=== PATIENT | male | born 1950 | race Caucasian/White ===

== ENCOUNTER 2024-05-25 13:14 | Outpatient (AMB) | payer MEDICARE, SELFPAY ==
--- NOTE | 2024-05-25 13:23 | MHC.OFFVIS ---
Intake Visit Reasons: Elevated PSA Intake Note: New patient is present for Elevated PSA 8.1 Cullet Crusher And Washer Required: No Biomass Power Plant Manager: Biomass Power Plant Manager Present Accompanied by: [facility] staff Allergies dextromethorphan Allergy (Intermediate, Verified 05/25/24 13:31) Unknown HPI Comments Details: Flaquito is nonverbal from care 1. 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 Unspecified mood [affective] disorder Review of Systems Const Denies chills and Denies fever(s) Card Reports no additional complaints and Denies syncope Resp Denies cough GI Denies abdominal pain and Denies heartburn Reports as per HPI and Denies change in libido Neuro Denies syncope Psych Denies change in libido Endo Denies change in libido Physical Exam Const General: cooperative, healthy appearing, comfortable and no acute distress Orientation/consciousness: patient oriented x3 HEENT Face and sinus: Yes normal facial exam Mouth: moist mucous membranes Neck Neck: Yes normal visual inspection, Yes full ROM and Yes trachea midline Chest Chest palpation & inspection: normal inspection of the chest Resp Effort & Inspection: normal respiratory effort, able to speak in complete sentences and no respiratory distress GI Inspection: Yes normal to inspection Back/Spine/Pelvis Cervical Spine: normal cervical lordosis Thoracic/Lumbar Spine: thoracic and lumbar spine normal to inspection Skin General skin exam: no rashes or lesions noted Neuro General: patient oriented x3, gait normal, tone normal and moves all extremities Extrem General: Yes normal to inspection and Yes capillary refill normal Assessment & Plan Assessment & Plan (1) Bladder outlet obstruction: Code(s): N32.0 - Bladder-neck obstruction Category: Medical (2) Elevated PSA: Code(s): R97.20 - Elevated prostate specific antigen [PSA] Category: Medical Plan Trial finasteride Orders: Orders PSA,Total (Free>4and<10) 6 Months R97.20 - Elevated prostate specific antigen [PSA] Medications: New finasteride 5 mg PO DAILY 90 days 90 tabs 1RF N13.8 - Other obstructive and reflux uropathy, N40.1 - Benign prostatic hyperplasia with lower urinary tract symptoms, R33.9 - Retention of urine, unspecified, R97.20 - Elevated prostate specific antigen [PSA] Patient Instructions: Imaging studies, laboratory and physical exam results were discussed and reviewed in detail. No major barriers to patient understanding were identified. An opportunity to ask questions regarding the treatment plan was provided. All questions were answered. The patient expressed understanding and agreement with the above treatment plan. The patient is aware they should contact our office by phone for worsening of their current condition or the appearance of new urologic symptoms. Compliance is encouraged with any medications and followup testing that is ordered. It is a privilege to participate in the urologic care of your patient. If you have any questions or concerns regarding treatment for the above conditions, or other urologic issues, please do not hesitate to contact me. The office telephone contact is [phone]. This note is constructed using voice recognition software. While every effort has been made to ensure accuracy beauty specialist errors may have been included. Yours sincerely, Dr Dominic Baker MD, DEON [facility] - Urology Providers of Expert, Compassionate Care for the Genitourinary System Coding Level of Care Code New Pt Level 4 (92932) Diagnoses Bladder outlet obstruction N32.0 Elevated PSA R97.20
== END 2024-05-25 13:56 | disposition home or self-care (01) ==
PROVIDERS: PCP Hospitalist; Visit Provider Urology
DX: R97.20 Elevated prostate specific antigen [PSA] (principal); N32.0 Bladder-neck obstruction
CPT/HCPCS: 99204

== ENCOUNTER → 2024-05-25 13:14 | Outpatient (BNVA) | payer MEDICARE, MEDICAID, SELFPAY | PROVIDERS: PCP Hospitalist; Visit Provider Urology | DX: R97.20 Elevated prostate specific antigen [PSA] (principal); N32.0 Bladder-neck obstruction | CPT/HCPCS: 99202 ==

== ENCOUNTER 2024-09-18 20:00 | Emergency (ER) | payer MEDICARE, MEDICAID, SELFPAY ==
--- NOTE | ~2024-09-18 | CT_ITS ---
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 Vascular calcifications are noted. No hydrocephalus accounting for generalized volume loss. No midline shift. No acute skull fracture. Fluid and mucosal thickening of the paranasal sinuses with multifocal ethmoid air cell opacification. Trace mastoid effusions. Cartilage calcifications noted. IMPRESSION: 1. Minimal right frontal subarachnoid hemorrhage. 2. No midline shift or hydrocephalus. 3. Ogatywnx-kf-jgkvof white matter pathology likely due to small-vessel ischemic disease. This document has been electronically signed by: Scar Harrell MD on 09/18/2024 22:42:29
--- NOTE | ~2024-09-18 | XR_ITS ---
CLINICAL HISTORY: fall 1 view pelvis Comparison: None Findings: Acute comminuted fracture of the proximal left femur with involvement of the left greater trochanter partial obscuration of upper intertrochanteric region. Angulation impaction noted of the partially imaged neck. No dislocation with moderate to severe osteoarthritis of both hips. Portions of the sacrum and SI joints are obscured with severe stool burden in the gaqbb-jg-vvmo. Partial obscuration of the pubic rami. IMPRESSION: 1. Acute proximal left femur fracture by one view radiograph. 2. Osteoarthritis of both hips. This document has been electronically signed by: Scar Harrell MD on 09/18/2024 23:37:18
--- NOTE | ~2024-09-18 | CT_ITS ---
CLINICAL HISTORY: neck trauma CT cervical spine without contrast Comparison: None Findings: Mild reversal of the cervical lordosis. No acute fracture of the cervical spine, accounting for motion artifacts. Mild anterolisthesis at C4-C5. Multifocal ligament calcifications noted. Degenerative disc changes are multifocal with disc height losses in disc osteophyte complexes. Mild spinal canal stenosis including C3-C4 to the cervicothoracic junction. Multilevel moderate to severe foraminal narrowing, particularly in the left C3-C4, bilateral C4-C5, and left at C6-C7. Additional foraminal narrowing is mild. Facet arthropathy is multifocal. No paraspinal hematoma. Scarring about imaged lung apices. Acute nondisplaced fracture involves the medial aspect of the imaged left clavicle. IMPRESSION: 1. No acute fracture of the cervical spine. 2. Medial acute left clavicle fracture in the field of view. This document has been electronically signed by: Scar Harrell MD on 09/18/2024 22:32:42
--- NOTE | ~2024-09-18 | XR_ITS ---
CLINICAL HISTORY: hip pain 2 view, pelvis and left hip Comparison: X-ray of the one view of the pelvis from the same day. Findings: Acute comminuted fracture of the proximal left femur with comminution and distraction of the left greater trochanter and lucency at upper margin of the intertrochanteric region. Fracture with impaction and overriding of the partially imaged left femoral neck. Portions of pelvis and proximal femur obscured with dubuqufb-ee-aycwuq osteoarthritis of the left hip. Severe stool burden in the evdpw-gh-qoha. IMPRESSION: Acute comminuted fracture of the proximal left femur with osteoarthritis of the left hip. This document has been electronically signed by: Scar Harrell MD on 09/18/2024 23:37:43
--- NOTE | ~2024-09-18 | XR_ITS ---
CLINICAL HISTORY: fall 1 view chest x-ray Comparison: None Findings: Low lung volumes with mild bibasilar atelectasis and/or pneumonitis. Cardiac silhouette and mediastinum accentuated by AP technique. Left lateral rib deformities appear old chronic given remodeling. No definite pneumothorax or pleural effusion in this one view study. IMPRESSION: Low lung volumes with bibasilar atelectasis. This document has been electronically signed by: Sacr Harrell MD on 09/18/2024 21:31:04
[2024-09-18 20:12] VITALS: BP 134/55; BP 136/74; PULSE 79; PULSE 83; RESP 20; TEMP 38.1; O2SAT 96; O2SAT 97; BMI 29.3
--- NOTE | 2024-09-18 20:20 | ECG_ITS ---
Test Reason : FALL Blood Pressure : */* mmHG Vent. Rate : 77 BPM Atrial Rate : 77 BPM P-R Int : 156 ms QRS Dur : 100 ms QT Int : 360 ms P-R-T Axes : 57 5 16 degrees QTcB Int : 407 ms Sinus rhythm with Fusion complexes and Premature atrial complexes with Aberrant conduction Possible Anterior infarct , age undetermined Abnormal ECG No previous ECGs available Referred By: Anna Guerrero Electronically Signed By: JANE MELGOZA MD
--- NOTE | 2024-09-18 20:35 | ED_ITS ---
HPI - Altered Mental Status General Chief Complaint: Fall Stated Complaint: Fall w/ head strike Time Seen by Provider: 09/18/24 20:19 Source: EMS and old records reviewed Mode of arrival: EMS Limitations: altered mental status History of Present Illness ED Provider: JENNIFER SETH narrative: 74 yo male from [facility] who has PMH of mood disorder, prior ETOH abuse, COPD, low back pain, HTN, cognitive impairment, HLD, CAD who comes from [facility] after lethargy and falls x 2 with headstrike. He has no pain per his reports. No thinners. No other history provided by EMS. On arrival to room he was 100.6 so sepsis alert was called MD complaint: altered mental status Onset (ago): unknown Timing confirmed by: caregiver Severity: moderate Consistency of symptoms: unknown Context: other Associated symptoms: denies other symptoms Related Data Previous Rx's ?Medication ?Instructions ?Recorded finasteride 5 mg tablet 5 mg PO DAILY 90 days #90 tabs 05/25/24 Allergies Allergy/AdvReac Type Severity Reaction Status Date / Time dextromethorphan Allergy Intermediate Unknown Verified 09/18/24 20:15 Review of Systems 2 Review of Systems: ROS unable to be obtained due to altered mental status PMFSH Past Medical History Source: old records reviewed Medical History Elevated PSA Complex dyslipidemia Phlebitis and thrombophlebitis of superficial vessels of left lower extremity HTN (hypertension) Low back pain, unspecified Chronic obstructive pulmonary disease, unspecified Aneurysm of the ascending aorta, without rupture Alcohol use, 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 Unspecified mood [affective] disorder Social History Social History (Updated 09/18/24 @ 20:44 by Anna Guerrero DO) Unable to assess alcohol history related to: Refusing to respond Patient Tobacco Use Status: Tobacco use Unknown Advance Directives: No Advance Directives Information Provided: No Do you have a plan to hurt others: No Plan Physical Exam ED Vital Signs: Vital Signs - 24 hr 09/18/24 20:12 09/18/24 21:16 09/18/24 21:22 Temperature 100.6 F H 101.7 F H 100.6 F H Pulse Rate 79 92 77 Respiratory Rate 20 12 Blood Pressure 134/55 L 136/55 L Pulse Oximetry 97 95 Oxygen Delivery Method Room Air Room Air 09/18/24 21:38 09/18/24 21:57 09/18/24 22:28 Temperature 100.2 F 100.5 F H Pulse Rate 66 Respiratory Rate 12 Blood Pressure 138/89 127/62 Pulse Oximetry 93 Oxygen Delivery Method Room Air BMI result Body Mass Index 29.3 Appearance: lethargic, not answering questions. Mild acute distress. Eyes: Pupils equal, round and reactive to light. ENT: Pharynx normal. atraumatic Neck: Normal inspection. Neck supple. CVS: Normal heart rate and rhythm. Pulses normal. Respiratory: No respiratory distress. Breath sounds normal. Abdomen: Soft and nontender. Skin: Skin warm and dry. Normal skin color. Normal skin turgor. Extremities: No lower extremity edema. does not grimace with ROM or axial loading of the hips Neuro: localizes to pain Course Course Course Narrative: call with who is HCP Laura Webber she notes she wouldn't want NSGY or trauma or surgeries done. she doesn't think this is a good quality of life Reevaluation(s) Reevaluation #1: who is HCP wants to think about surgery of L hip 1149pm she is not sure of hospice vs surgery Reevaluation #2: still pending to make a decision with family about goals of care she is HCP he cannot make decisions anticipate sign out to Dr. Cerna Medications Administered Discontinued Medications Generic Name Dose Route Start Last Admin Trade Name Freq PRN Reason Stop Dose Admin Ceftriaxone Sodium 1 gm 09/18/24 20:23 09/18/24 20:57 Ceftriaxone Sodium 1 Gm Vial IVPUSH 09/18/24 20:24 1 gm ONCE ONE Administration Acetaminophen 1,000 mg in 100 mls @ 400 mls/hr 09/18/24 20:19 09/18/24 21:12 Ofirmev IV 09/18/24 20:33 Infused ONCE ONE Infusion Medical Decision Making Medical Decision Making [facility] Narrative: 74 [facility] male from [facility] who has PMH of mood disorder, prior ETOH abuse, COPD, low back pain, HTN, cognitive impairment, HLD, CAD here with falls x 2 and undifferentiated lethargy at this time given presentation will obtain labs, CXR, CT head/cspine given I cannot rule out trauma, IV tylenol, empiric ceftriaxone, EKG, work up for metabolic/infectious encephalopathy Differential Diagnosis Differential Diagnoses: The differential diagnosis associated with the presentation includes encephalopathy, head injury, weakness, FTT, anemia, dehydration, infectious cause Admission/Observation Consideration of admission/observation: Escalation of care including admission/observation considered Lab Data MDM Lab Attestation statement: I reviewed the patient's lab results. 09/18/24 20:50 09/18/24 20:56 Labs: Lab Results 09/18/24 09/18/24 09/18/24 Range/Units 20:50 20:56 22:31 WBC 7.6 (4.8-10.8) X10*3/uL RBC 4.30 L (4.60-5.80) X10*6/uL Hgb 12.7 L (14.0-18.0) g/dl Hct 37.2 L (42.0-52.0) % MCV 86.5 (80.0-98.0) fL MCH 29.5 (27.0-33.0) pg MCHC 34.1 (31.0-36.0) g/dl RDW 13.1 (11.0-16.0) % Plt Count 191 (160-400) X10*3/uL MPV 9.3 L (9.4-12.4) fL Immature Gran % (Auto) 0.5 H (0.0-0.4) % Neut % (Auto) 83.0 H (45-73) % Lymph % (Auto) 5.6 L (20-40) % [place] % (Auto) 6.9 (2-11) % Eos % (Auto) 3.7 (0-4) % Baso % (Auto) 0.3 (0-2) % Lymph # (Auto) 0.4 L (1.2-4.9) X10*3/uL [place] # (Auto) 0.5 (0.1-1.2) X10*3/uL Eos # (Auto) 0.3 (0.0-0.4) X10*3/uL Baso # (Auto) 0.0 (0.0-0.2) X10*3/uL Abs Immat Gran (auto) 0.04 H (0.00-0.03) X10*3/uL Absolute Neuts (auto) 6.3 (2.0-8.3) x10*3/uL Absolute Nucleated RBC 0.000 (0.0-0.012) X10*3/uL Nucleated RBC % (auto) 0.0 (0.0-0.2) /100WBC Sodium 143 (135-145) mmol/L Potassium 3.9 (3.3-5.1) mmol/L Chloride 115 H (96-108) mmol/L Carbon Dioxide 22 (22-29) mmol/L Anion Gap 10 L (12-20) BUN 21 H (9-16) mg/dL Creatinine 0.82 (0.5-1.4) mg/dL Estim Creat Clear Calc 75.4 Estimated GFR > 60 Random Glucose 137 H (60-115) mg/dL Lactic Acid 1.2 (0.5-2.0) mmol/L Calcium 8.8 (8.4-10.2) mg/dL Magnesium 1.9 (1.6-2.6) mg/dL Total Bilirubin 0.7 (0.0-1.0) mg/dL Direct Bilirubin 0.3 (0.0-0.5) mg/dL AST 20 (5-37) U/L ALT 21 (0-40) U/L Alkaline Phosphatase 137 H (39-117) U/L Total Creatine Kinase 43 (38-174) U/L Troponin I High Sens < 2.7 (<3.5-35.0) ng/L C-Reactive Protein 0.76 H (< or = 0.50) mg/dL B-Natriuretic Peptide < 10 (<100) pg/mL Total Protein 6.4 L (6.5-8.0) g/dL Albumin 4.2 (3.5-5.0) g/dL Lipase 32 (8-78) U/L Procalcitonin 0.04 ng/mL Urine Color Yellow Urine Appearance Clear Urine pH 6.0 (5.0-9.0) Ur Specific [place] >= 1.030 H (1.005-1.025) Urine Protein Negative (Neg-Trace) mg/dL Urine Glucose (UA) 100 H (Negative) mg/dL Urine Ketones Negative (Negative) mg/dL Urine Blood Negative (Negative) Urine Nitrite Negative (Negative) Ur Leukocyte Esterase Negative (Negative) Influenza Type A (PCR) NEGATIVE (Negative) Influenza Type B (PCR) NEGATIVE (Negative) RSV RNA Qual (PCR) POSITIVE A (Negative) SARS-CoV-2 RNA (RT-PCR) NEGATIVE (Negative) Independent Interpretation I performed an independent interpretation of an: EKG, Plain X-Ray and CT Scan Interpretation: Rate: 77 Rhythm: NSR [place]: normal Normal P waves. Normal ILIANA. Normal QRS complex. ST T wave : no CHRISTY, normal improved qTC: 407 prior studies: no STEMI The study has been interpreted contemporaneously by me. . Radiology Impression Discussion of test interpretation with radiology: I have reviewed the radiologist's reading. Independent Historian Clinical information obtained from an independent historian. History obtained from or confirmed by: EMS External Record Review External record reviewed: Outpatient record Discharge Plan Discharge Clinical Impression: Subarachnoid hemorrhage RSV infection Qualifiers: RSV infection type: unspecified Qualified Code(s): B33.8 - Other specified viral diseases Clavicle fracture Qualifiers: Encounter type: initial encounter Clavicle location: sternal end Fracture type: closed Fracture alignment: nondisplaced Laterality: left Qualified Code(s): S 42.018A - Nondisplaced fracture of sternal end of left clavicle, initial encounter for closed fracture Femur fracture, left Qualifiers: Encounter type: initial encounter Femur location: unspecified portion of femur Fracture type: closed Fracture morphology: unspecified fracture morphology Q ualified Code(s): S72.92XA - Unspecified fracture of left femur, initial encounter for closed fracture Patient Disposition: Still a Patient Prescriptions: No Action finasteride 5 mg tablet 5 mg PO DAILY 90 Days Qty: 90 1RF Print Language: French
[2024-09-18 20:56] LABS: MANUAL DIFF FLAG NO
[2024-09-18 20:57] LABS: Basophils Percent Auto 0.3 % (0-2); Eosinophils Absolute Auto 0.3 X10*3/uL (0.0-0.4); Eosinophils Percent Auto 3.7 % (0-4); Hematocrit 37.2 % (42.0-52.0); Hemoglobin 12.7 g/dl (14.0-18.0); Imm Gran Abs Auto 0.04 X10*3/uL (0.00-0.03); Imm Gran Pct Auto 0.5 % (0.0-0.4); Lymphocytes Absolute Auto 0.4 X10*3/uL (1.2-4.9); Lymphocytes Percent Auto 5.6 % (20-40); Mean Corpuscular HGB Conc 34.1 g/dl (31.0-36.0); Mean Corpuscular Hemoglobin 29.5 pg (27.0-33.0); Mean Corpuscular Volume 86.5 fL (80.0-98.0); Mean Platelet Volume 9.3 fL (9.4-12.4); Monocytes Absolute Auto 0.5 X10*3/uL (0.1-1.2); Monocytes Percent Auto 6.9 % (2-11); Neutrophils Absolute Auto 6.3 x10*3/uL (2.0-8.3); Platelet Count 191 X10*3/uL (160-400); Red Cell Distribution Width 13.1 % (11.0-16.0); White Blood Count 7.6 X10*3/uL (4.8-10.8)
[2024-09-18] MEDS: Acetaminophen 1,000 MG/100 ML PIGGYBACK 400 MG IV (20:57)
[2024-09-18] MEDS: cefTRIAXone sodium 1 GM VIAL IVPUSH (20:57)
--- NOTE | 2024-09-18 21:07 | PC.NURSE ---
pt [facility]. s/p witnessed fall while standing up from bed with x2 headstrikes. per facility staff no loc no thinners. per facility staff pt complains of ankle pain- however will not respond when t/w inquires about pain. on arrival pt was moderately combative, grabbing onto t/w and additional staff while attempting to collect lab specimens. t/w was able to obtain access however, pt pulled line out immediately. IV access was reestablished, and labs were obtained. LAbs pending at this time. pt taken to CT scan
[2024-09-18 21:12] LABS: Lactic Acid 1.2 mmol/L (0.5-2.0)
--- NOTE | 2024-09-18 21:15 | PC.NURSE ---
pt in CT scan
[2024-09-18 21:16] VITALS: PULSE 92; TEMP 38.7
[2024-09-18 21:18] LABS: B Type Natriuretic Peptide < 10 pg/mL (<100)
[2024-09-18 21:19] LABS: Troponin-I High Sensitivity < 2.7 ng/L (<3.5-35.0)
[2024-09-18 21:22] VITALS: BP 136/55; PULSE 77; RESP 12; TEMP 38.1; O2SAT 95
[2024-09-18 21:24] LABS: Albumin Level 4.2 g/dL (3.5-5.0); Alkaline Phosphatase 137 U/L (39-117); Anion Gap 10 (12-20); Aspartate Amino Transferase 20 U/L (5-37); Bilirubin Direct 0.3 mg/dL (0.0-0.5); Bilirubin Total 0.7 mg/dL (0.0-1.0); Blood Urea Nitrogen 21 mg/dL (9-16); C Reactive Protein 0.76 mg/dL (< or = 0.50); Calcium 8.8 mg/dL (8.4-10.2); Carbon Dioxide 22 mmol/L (22-29); Chloride 115 mmol/L (96-108); Creatinine Clr Calc Pharmacy 75.4; Estimated Glomerular Filt Rate > 60; Glucose Random 137 mg/dL (60-115); Lipase 32 U/L (8-78); Magnesium 1.9 mg/dL (1.6-2.6); Potassium 3.9 mmol/L (3.3-5.1); Sodium 143 mmol/L (135-145); Total Protein 6.4 g/dL (6.5-8.0)
[2024-09-18 21:38] VITALS: BP 138/89
[2024-09-18 21:39] LABS: Alanine Aminotransferase 21 U/L (0-40); Procalcitonin 0.04 ng/mL
[2024-09-18 21:43] LABS: Influenza A PCR NEGATIVE (Negative); Influenza B PCR NEGATIVE (Negative); Resp Syncy Virus RNA Qual PCR POSITIVE (Negative); SARS COV2 PCR INHOUSE NEGATIVE (Negative)
[2024-09-18 21:57] VITALS: TEMP 37.9
--- NOTE | 2024-09-18 22:12 | PC.NURSE ---
no fluids ordered at this time despite sepsis protocol initiation
[2024-09-18 22:28] VITALS: BP 127/62; PULSE 66; RESP 12; TEMP 38.1; O2SAT 93
[2024-09-18 22:57] LABS: Appearance Urine Clear; Color Urine Yellow; Glucose Urine UA 100 mg/dL (Negative); Leukocyte Esterase Urine Negative (Negative); Nitrite Urine Negative (Negative); Specific Gravity - Urine >= 1.030 (1.005-1.025); Urine Blood Negative (Negative); Urine Ketones Negative (Negative); Urine Protein Negative (Neg-Trace)
--- NOTE | 2024-09-18 23:02 | PC.NURSE ---
pt cleared from c-collar per MD Guerrero, pt found to have ?subarachnoid hemmorhage, PER MD Guerrero family does not wish to have pt transferred to trauma center. pt taken for additional imaging at this time
[2024-09-19 05:56] VITALS: BP 122/58; PULSE 68; RESP 12; TEMP 38.3; O2SAT 97
[2024-09-19] MEDS: Acetaminophen 1,000 MG/100 ML PIGGYBACK 400 MG IV (06:24)
--- NOTE | 2024-09-19 08:12 | PC.NURSE ---
Meal tray ordered for pt.
[2024-09-19 09:50] VITALS: BP 140/74; PULSE 58; RESP 16; TEMP 36.5; O2SAT 96
--- NOTE | 2024-09-19 10:49 | PHA.MEDREC ---
Pharmacy Consult ? Medication Reconciliation Pharmacy has reviewed the medication reconciliation completed by nursing. Utilized list from facility
--- NOTE | 2024-09-19 11:16 | MHC.EDTECH ---
Patient pulled on and removed [place] catheter. New [place] catheter placed. Patient resting quietly, positioned for comfort. Call figueroa placed within reach.
[2024-09-19 12:08] VITALS: BP 155/79; PULSE 59; RESP 12; TEMP 36.7; O2SAT 98
--- NOTE | 2024-09-19 13:27 | PC.NURSE ---
Called [facility], spoke to Nancy YANEZ all questions answered, patient to be transferred over once transport available.
[2024-09-19 14:02] VITALS: BP 158/76; PULSE 59; RESP 12; TEMP 36.7; O2SAT 98
== END 2024-09-19 14:03 | disposition short-term general hospital (02) ==
PROVIDERS: Emergency Provider Emergency Medicine; PCP Hospitalist
DX: S06.6XAA Traumatic subarachnoid hemorrhage with loss of consciousness status unknown, initial encounter (principal); S42.018A Nondisplaced fracture of sternal end of left clavicle, initial encounter for closed fracture; S72.92XA Unspecified fracture of left femur, initial encounter for closed fracture; W19.XXXA Unspecified fall, initial encounter; R53.83 Other fatigue; R50.9 Fever, unspecified; B97.4 Respiratory syncytial virus as the cause of diseases classified elsewhere; F10.10 Alcohol abuse, uncomplicated; Y90.9 Presence of alcohol in blood, level not specified; Z03.818 Encounter for observation for suspected exposure to other biological agents ruled out; J44.9 Chronic obstructive pulmonary disease, unspecified; I10 Essential (primary) hypertension; E78.5 Hyperlipidemia, unspecified; Z91.81 History of falling; Y93.9 Activity, unspecified; Y92.129 Unspecified place in nursing home as the place of occurrence of the external cause; Y99.9 Unspecified external cause status
CPT/HCPCS: 0241U; 36415; 70450; 71045; 72125; 72170; 73502; 80048; 80076; 81003; 82550; 83605; 83690; 83735; 83880; 84145; 84484; 85025; 86140; 87040; 93005; 96365; 96375; 99285; J0131; J0696

== ENCOUNTER → 2024-09-18 20:20 | Outpatient (BNV) | payer MEDICARE, MEDICAID, SELFPAY | PROVIDERS: Emergency Provider Emergency Medicine; PCP Hospitalist; Visit Provider Internal Medicine Cardiovascular Disease | DX: I49.1 Atrial premature depolarization (principal); R94.31 Abnormal electrocardiogram [ECG] [EKG] | CPT/HCPCS: 93010 ==

== ENCOUNTER → 2024-09-18 20:20 | Outpatient (BNV) | payer MEDICARE, MEDICAID, SELFPAY | PROVIDERS: Emergency Provider Emergency Medicine; PCP Hospitalist; Visit Provider Radiology Neuroradiology | DX: S72.352A Displaced comminuted fracture of shaft of left femur, initial encounter for closed fracture (principal) | CPT/HCPCS: 70450; 71045; 72125; 72170; 73502 ==

== ENCOUNTER 2025-01-02 13:41 | Outpatient (AMB) | payer MEDICARE, MEDICAID, SELFPAY ==
--- NOTE | 2025-01-02 14:06 | MHC.OFFVIS ---
Intake Visit Reasons: 6m/PSA Intake Note: Patient presents for a 6m follow up of elevated PSA Commissary Production Supervisor Required: No Weaver Needle Loom: Weaver Needle Loom Present Accompanied by: [facility] staff Allergies dextromethorphan Allergy (Intermediate, Verified 01/02/25 14:08) Unknown HPI Comments Details: Flaquito is nonverbal from [facility]. He is seen for the following urologic conditions - elevated PSA - lower urinary tract symptoms Six-month follow-up Prior trial off finasteride Accompanied by 2 aides PSA fallen from 8.1-0.5 Elevated PSA PSA 03/06 8.1, 01/05 0.5 Patient nonverbal Continue finasteride [facility] Medical History (Updated 09/20/24 @ 00:00 by Jim Arenas) Elevated PSA Complex dyslipidemia Phlebitis and thrombophlebitis of superficial vessels of left lower extremity HTN (hypertension) Low back pain, unspecified Chronic obstructive pulmonary disease, unspecified Aneurysm of the ascending aorta, without rupture Alcohol use, 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 Unspecified mood [affective] disorder Social History (Updated 09/18/24 @ 20:44 by Anna Guerrero DO) Unable to assess alcohol history related to: Refusing to respond Patient Tobacco Use Status: Tobacco use Unknown Review of Systems Const Denies chills and Denies fever(s) Card Reports no additional complaints and Denies syncope Resp Denies cough GI Denies abdominal pain and Denies heartburn Reports as per HPI and Denies change in libido Neuro Denies syncope Psych Denies change in libido Endo Denies change in libido Physical Exam Const General: cooperative, healthy appearing, comfortable and no acute distress Orientation/consciousness: patient oriented x3 HEENT Face and sinus: Yes normal facial exam Mouth: moist mucous membranes Neck Neck: Yes normal visual inspection, Yes full ROM and Yes trachea midline Chest Chest palpation & inspection: normal inspection of the chest Resp Effort & Inspection: normal respiratory effort, able to speak in complete sentences and no respiratory distress GI Inspection: Yes normal to inspection Back/Spine/Pelvis Cervical Spine: normal cervical lordosis Thoracic/Lumbar Spine: thoracic and lumbar spine normal to inspection Skin General skin exam: no rashes or lesions noted Neuro General: patient oriented x3, gait normal, tone normal and moves all extremities Extrem General: Yes normal to inspection and Yes capillary refill normal Assessment & Plan Assessment & Plan (1) Elevated PSA: Code(s): R97.20 - Elevated prostate specific antigen [PSA] Category: Medical (2) Bladder outlet obstruction: Code(s): N32.0 - Bladder-neck obstruction Category: Medical Plan 12 month follow-up PSA office Patient Instructions: This note is constructed using voice recognition software. While every effort has been made to ensure accuracy six sigma project manager errors may have been included. Imaging studies, laboratory and physical exam results were discussed and reviewed in detail. No major barriers to patient understanding were identified. An opportunity to ask questions regarding the treatment plan was provided. All questions were answered. The patient expressed understanding and agreement with the above treatment plan. The patient is aware they should contact our office by phone for worsening of their current condition or the appearance of new urologic symptoms. Compliance is encouraged with any medications and followup testing that is ordered. It is a privilege to participate in the urologic care of your patient. If you have any questions or concerns regarding treatment for the above conditions, or other urologic issues, please do not hesitate to contact me. The office telephone contact is [phone]. Sincerely, Dr Dominic Baker MD, DE[facility] - Urology Compassionate Specialist Care for the Genitourinary System Coding Level of Care Code Est Pt Level 3 (94630) Complex EM visit Add On G2211 Diagnoses Elevated PSA R97.20 Bladder outlet obstruction N32.0
--- OUTSIDE RECORDS SUMMARY | 2025-01-02 16:17 | XMS_ITS | Continuity of Care Document ---
Author Organization Dallin Mccollum [facility] Address [address] [place] [address] Phone Care Team Providers Care Glass Blower Helper Name Role Phone Catherine Torre RN Unavailable Unavailable Advance Directives Directive Yes / No Effective Date File Name No Information Encounters Encounter Description Practice Location Reason(s) For Visit Diagnoses Date Provider Providers Copied on Encounter lashawn Villaseñor [facility], [address] [place] [address] 2,[address], [place], [place], [id number], [place] tel:[phone] 2 [facility] No Information 0 4 Nicho Alexander. [address] [place], [place], [id number] , [place]. tel:[phone] Family History Family Member Type Diagnosis Age At Onset No Information Payers Payer name Insurance type Covered alliance party ID Authoriza tion(s) No Information Social History Type Description Quantity Date Captured Comments Sex Male Smoking Status No Information Chief Complaint And Reason For Visit No Information Reason For Referral Reason For Referral No Information Plan Of Treatment Date Type Action Status Goal CT-Colonography. Due on due Goal Zoster vaccine (1st). Due on due Goal FIT-DNA. Due on due Goal Unhealthy drug use screening . Due on due Goal FOBT. Due on due Goal Hepatitis C Screening. Due o n due Goal Document SOGI Information. D ue on due Goal Lipid panel. Due on 014 due Goal Zoster vaccine. Due on due Goal Td vaccine. Due on due Goal Colonoscopy. Due on due Goal Tdap. Due on due Goal Influenza vaccine. Due on Ap due Goal APE. Due on due History Of Present Illness Encounter Date Complaint History Of Prese nt Illness No Information Functional Status Date Functional Assessmen t No Information Instructions Date Instruction Additional Infor mation No Information Assessments Type Assessment Date No Information Patient Care Teams Name Effective Dates (start - stop) Status Members No Information
--- OUTSIDE RECORDS SUMMARY | 2025-01-02 16:17 | XMS_ITS | Encounter Summary ---
Author Organization [facility] Address [address] [place] [address] Care Team Providers Care Hide And Skin Processing Worker Name Role Phone Cornelius Modi MD Primary Care Provider [phone] Encounter Details Date Type Department Care Team (Late st Contact Info) Description 10/12/2024 Lab Requisition [facility] - Main Lab [address] [place] [address] Cornelius Modi MD [address] [place] [address] Dr [address] [place] Anemia, unspecified Social History Tobacco Use Types Packs/Day Years Used Date Smoking Tobacco: Never Assessed Sex and Gender Information Value Date Recorded Sex Assigned at Not on file Legal Sex Male 3:40 PM EDT Gender Identity Not on file Sexual Orientation Not on file documented as of this encounter Plan of Treatment Not on file documented as of this encounter Procedures Procedure Name Priority Date/Time Associated Diagnosis Comments VITAMIN B12 AND FOLATE Routine 10/12/2024 6:43 AM EST Anemia, unspecified documented in this encounter Results * Vitamin B12 and folate (10/12/2024 6:43 AM EST) Vitamin B-12 744 250 - 900 pcg/mL LAB CHEMISTRY METHOD 10/12/2024 8:[address] [facility] Folate 6.6 2.8 - 17.0 ng/ml LAB CHEMISTRY METHOD 10/12/2024 8:[address] [facility] Blood Venous blood specimen / Unknown 10/12/2024 6:43 AM EST 10/12/2024 7:13 AM EST us Cornelius Modi MD LAB BLOOD ORDERABLES Final Resul t [facility] [address] [place] [address], documented in this encounter Visit Diagnoses Diagnosis Anemia, unspecified documented in this encounter Care Teams Hide And Skin Processing Worker Relationship Specialty Start Date End Date Cornelius Modi MD [address] [place] [address] PCP - General Internal Medicine 10/12/24 documented as of this encounter
--- OUTSIDE RECORDS SUMMARY | 2025-01-02 16:17 | XMS_ITS | Clinical Summary ---
Author Organization [address] [facility] Address [address] [place] [address] Phone Care Team Providers Care Tool Grinding Machine Operator Name Role Phone Cornelius Modi MD Primary Care Provider [phone] Encounters Date Type Department Care Team Description 11/21/2024 Lab Requisition [facility] Lab [address] [place] [address] Cornelius Modi MD Essential (primary) hypertension 10/12/2024 Lab Requisition [facility] Lab [address] [place] [address] Cornelius Modi MD Anemia, unspecified from Last 3 Months Social History Tobacco Use Types Packs/Day Years Used Date Smoking Tobacco: Never Assessed Sex and Gender Information Value Date Recorded Sex Assigned at Not on file Legal Sex Male 3:40 PM EDT Gender Identity Not on file Sexual Orientation Not on file Plan of Treatment Health Maintenance Due Date Last Done Comments DTaP,Tdap,and Td Vaccines (1 - Tdap) 1970 Pneumococcal Vaccine: 50+ Ye ars (1 of 1 - PCV) 2001 Zoster Vaccines (1 of 2) 2001 COVID-19 Vaccine ( - 2023-2 5 season) 2024 Abdominal Aortic Aneurysm (A AA) Screen 07/09/2024 Cholesterol Screening (Lipid Panel) 07/09/2024 Colorectal Cancer Screening: Colonoscopy 07/09/2024 Depression Screening 07/09/2024 Falls Risk Assessment 07/09/2024 Hepatitis C Screening 07/09/2024 Medicare Annual Wellness Visit 07/09/2024 Social Influencers of Health Screening 07/09/2024 Hypertension/CHF/CAD Annual BMP Blood Test 11/21/2024 Influenza Vaccine (Season Ended) 2025 RSV Immunization Adult Patie nts (1 - 1-dose 75+ series) 2026 HIB Vaccines Aged Out No longer eligi ble based on patient's age to complete this topic HPV Vaccines Aged Out No longer eligi ble based on patient's age to complete this topic Hepatitis A Vaccines Aged Out No long er eligible based on patient's age to complete this topic Hepatitis B Vaccines Aged Out No long er eligible based on patient's age to complete this topic IPV Vaccines Aged Out No longer eligi ble based on patient's age to complete this topic MMR Vaccines Aged Out No longer eligi ble based on patient's age to complete this topic Meningococcal ACWY Vaccine Aged Out N o longer eligible based on patient's age to complete this topic Meningococcal B Vaccine Aged Out No l onger eligible based on patient's age to complete this topic RSV Immunization Patients Un sohail 20 months Aged Out No longer eligible b ased on patient's age to complete this topic Varicella Vaccines Aged Out No longer eligible based on patient's age to complete this topic Procedures Procedure Name Priority Date/Time Associated Diagnosis Comments PROSTATE SPECIFIC ANTIGEN SCREEN Routine 11/21/2024 6:42 AM EDT Essential (primary) hypertension VITAMIN B12 AND FOLATE Routine 10/12/2024 6:43 AM EST Anemia, unspecified from Last 3 Months Results * Prostate specific antigen screen (11/21/2024 6:42 AM EDT) PSA 0.53 0.00 - 4.00 ng/mL LAB CHEMISTRY METHOD 11/21/2024 9:57 AM EDT [facility] Blood Venous blood specimen / Unknown 11/21/2024 6:42 AM EDT 11/21/2024 7:34 AM EDT Narrative [facility] - 11/21/2024 9:57 AM EDT The Siemens Advia Centaur Chemiluminescent Immunoassay is used. Results obtained with different assay methods or kits cannot be used interchangeably. Results cannot be interpreted as absolute evidence of the presence or absence of malignant disease. us Cornelius Modi MD LAB BLOOD ORDERABLES Final Resul t [facility] [address] [place] [address], [place] [phone] * Vitamin B12 and folate (10/12/2024 6:43 AM EST) Vitamin B-12 744 250 - 900 pcg/mL LAB CHEMISTRY METHOD 10/12/2024 8:40 AM EST [facility] Folate 6.6 2.8 - 17.0 ng/ml LAB CHEMISTRY METHOD 10/12/2024 8:40 AM EST [facility] Blood Venous blood specimen / Unknown 10/12/2024 6:43 AM EST 10/12/2024 7:13 AM EST us Cornelius Modi MD LAB BLOOD ORDERABLES Final Resul t [facility] [address] [place] [address], [place] [phone] from Last 3 Months Insurance MEDICAID - [place] MEDICARE CARE IMPROVEMENT PLUS CARE IMPROVEMENT PLUS Care Teams Tool Grinding Machine Operator Relationship Specialty Start Date End Date Cornelius Modi MD [address] [place] [address] PCP - General Internal Medicine 10/12/24
--- OUTSIDE RECORDS SUMMARY | 2025-01-02 16:17 | XMS_ITS | Encounter Summary ---
Author Organization [facility] Address [address] [place] [address] Care Team Providers Care Settlement Technician Name Role Phone Cornelius Modi MD Primary Care Provider [phone] Encounter Details Date Type Department Care Team (Late st Contact Info) Description 11/21/2024 Lab Requisition [facility] - Main Lab [address] [facility] [place] [address] Cornelius Modi MD [address] [place] [address] [address] [place] Essential (primary) hypertension Social History Tobacco Use Types Packs/Day Years [...] 11/21/2024 6:42 AM EDT Essential (primary) hypertension documented in this encounter Results * Prostate specific antigen screen (11/21/2024 6:42 AM EDT) PSA 0.53 0.00 - 4.00 ng/mL LAB CHEMISTRY METHOD 11/21/2024 9:57 AM EDT [facility] Blood Venous blood specimen / Unknown 11/21/2024 6:42 AM EDT 11/21/2024 7:34 AM EDT Narrative [facility] - 11/21/2024 9:57 AM EDT The Siemens Advia Centaur Chemiluminescent Immunoassay is used. Results obtained with different assay methods or kits cannot be used interchangeably. Results cannot be interpreted as absolute evidence of the presence or absence of malignant disease. us Cornelius Modi MD LAB BLOOD ORDERABLES Final Resul t [facility] [address] [place] [address], documented in this encounter Visit Diagnoses Diagnosis Essential (primary) hypertension Unspecified essential hypertension documented in this encounter Care Teams Settlement Technician Relationship Specialty Start Date End Date Cornelius Modi MD [address] [place] [address] PCP - General Internal Medicine 10/12/24 documented as of this encounter
== END 2025-01-02 14:35 | disposition home or self-care (01) ==
LOC: HO.HUSH 13:42
PROVIDERS: PCP Hospitalist; Visit Provider Urology
DX: R97.20 Elevated prostate specific antigen [PSA] (principal); N32.0 Bladder-neck obstruction
CPT/HCPCS: 99213; G2211

== ENCOUNTER → 2025-01-02 13:41 | Outpatient (BNVA) | payer MEDICARE, MEDICAID, SELFPAY | PROVIDERS: PCP Hospitalist; Visit Provider Urology | DX: R97.20 Elevated prostate specific antigen [PSA] (principal); N32.0 Bladder-neck obstruction | CPT/HCPCS: 99212 ==